=== PATIENT | male | born 1965 | race Caucasian/White ===

== ENCOUNTER → 2018-04-30 | Outpatient (REF) | payer OTHER ==
[2018-05-03 14:44] LABS: CODEINE, URINE Negative (Cutoff=100); CREATININE, URINE 62.4 mg/dL (20.0-300.0); HYDROCODONE CONFIRM, URINE 864 ng/mL (Cutoff=100); HYDROCODONE, URINE Positive (.); HYDROMORPHONE CONFIRM, URINE 227 ng/mL (Cutoff=100); HYDROMORPHONE, URINE Positive (.); MORPHINE, URINE Negative (Cutoff=100); OPIATES, URINE Positive ng/mL (Cutoff=300)
== END | disposition home or self-care (01) ==
LOC: M SFHCPLAZ 17:19
DX: F11.90 Opioid use, unspecified, uncomplicated (principal); M54.5 Low back pain

== ENCOUNTER 2018-08-14 07:42 | Day surgery (SDC) | payer OTHER ==
[~2018-08-14] VITALS: Ht 177.8 cm; Wt 95.9 kg
[2018-08-14] MEDS: NS 1,000 ML IV ONE (06:15)
[~2018-08-14 07:42] MED LIST: CRAN450T4 PO; CYCL10TA PO; GLUCCAP4 PO; HYDR-4514 PO; LIDOCAINE 2% INJ 100 MG/5 ML SDV (FOR ANES.) As Ordered ONE; MELO15TA28 PO; NEUR300C PO; OMEGCAP4 PO; PROBCAP14 PO; PROPOFOL 200 MG/20 ML VIAL As Ordered ONE; ROSU20TA4 PO; SERT-141 PO
[2018-08-14] MEDS ORDERED: PROPOFOL 200 MG/20 ML VIAL As Ordered ONE (08:21)
--- NOTE | 2018-08-14 08:48 | ROOR ---
Patient Name: Magdaleno Rucker Procedure Date: 08/14/2018 8:12 AM Date of : 1965 Age: 53 Room: [facility] Gender: Male Note Status: Finalized Procedure: Colonoscopy Indications: Screening for colorectal malignant neoplasm Providers: Bart NGUYEN MD Referring MD: INDIRA BANDA Jaci [facility] Janet Requesting Provider: Medicines: Monitored Anesthesia Care Complications: No immediate complications. Procedure: Pre-Anesthesia Assessment: - The heart rate, respiratory rate, oxygen saturations, blood pressure, adequacy of pulmonary ventilation, and response to care were monitored throughout the procedure. The Colonoscope was introduced through the anus and advanced to the terminal ileum, with identification of the appendiceal orifice and IC valve. The colonoscopy was performed without difficulty. The patient tolerated the procedure well. The quality of the bowel preparation was good. Findings: The perianal and digital rectal examinations were normal. Three sessile polyps were found in the splenic flexure. The polyps were 3 to 6 mm in size. These polyps were removed with a hot snare. Resection and retrieval were complete. Two sessile polyps were found in the sigmoid colon. The polyps were 3 to 4 mm in size. These polyps were removed with a hot snare. Resection and retrieval were complete. A 4 mm polyp was found in the recto-sigmoid colon. The polyp was sessile. The polyp was removed with a hot snare. Resection and retrieval were complete. Mild sigmoid diverticulosis and small internal hemorrhoids. The exam was otherwise without abnormality on direct and retroflexion views. Impression: - Three 3 to 6 mm polyps at the splenic flexure, removed with a hot snare. Resected and retrieved. - Two 3 to 4 mm polyps in the sigmoid colon, removed with a hot snare. Resected and retrieved. - One 4 mm polyp at the recto-sigmoid colon, removed with a hot snare. Resected and retrieved. - Mild sigmoid diverticulosis and small internal hemorrhoids. - The examination was otherwise normal on direct and retroflexion views. Recommendation: - Repeat colonoscopy in 3 years for surveillance. Bart Nguyen MD Bart NGUYEN MD 08/14/2018 8:47:46 AM Electronically signed by Bart NGUYEN MD Number of Addenda: 0 Note Initiated On: 08/14/2018 8:12 AM Estimated Blood Loss: Estimated blood loss: none.
[2018-08-14 09:05] VITALS: BP 100/65
== END 2018-08-14 09:17 | disposition home or self-care (01) ==
LOC: M OPP 07:42
PROVIDERS: ATTEND Internal Medicine Gastroenterology
DX: D12.3 Benign neoplasm of transverse colon (principal); D12.5 Benign neoplasm of sigmoid colon; D12.7 Benign neoplasm of rectosigmoid junction; K57.30 Diverticulosis of large intestine without perforation or abscess without bleeding; K64.8 Other hemorrhoids; Z12.11 Encounter for screening for malignant neoplasm of colon

== ENCOUNTER → 2018-11-05 | Outpatient (REF) | payer OTHER ==
[~2018-11-05] MED LIST changes: -LIDOCAINE 2% INJ 100 MG/5 ML SDV (FOR ANES.) As Ordered ONE; -PROPOFOL 200 MG/20 ML VIAL As Ordered ONE; -ROSU20TA4 PO; +ROSU20TA5 PO
[2018-11-05 17:54] LABS: BLOOD UREA NITROGEN 8 MG/DL (7-18); CREATININE FOR GFR 0.79 MG/DL (0.70-1.30); GLOMERULAR FILTRATION RATE > 60.0 (>56)
== END ==
LOC: M LABDRAW1 17:09
PROVIDERS: ATTEND Physician Assistant
DX: M47.817 Spondylosis without myelopathy or radiculopathy, lumbosacral region (principal)

== ENCOUNTER 2019-09-29 00:13 | Emergency (ER) | payer OTHER ==
[~2019-09-29] VITALS: Ht 177.8 cm; Wt 90.9 kg
[~2019-09-29 00:13] MED LIST changes: +CYCL-707 PO; -CYCL10TA PO
[2019-09-29] MEDS ORDERED: MORPHINE 4 MG/ML 1ML VIAL/SYRINGE (J2270) IV PRN (00:45)
[2019-09-29] MEDS ORDERED: ONDANSETRON 4MG/2ML VIAL IV ONE (00:45)
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
[2019-09-29] MEDS ORDERED: ATOR1TAB19 PO (01:31)
[2019-09-29 02:31] VITALS: BP 129/69
== END 2019-09-29 02:33 | disposition home or self-care (01) ==
LOC: EDBD 00:13 → M ED 00:13
DX: Z04.71 Encounter for examination and observation following alleged adult physical abuse (principal); S01.01XA Laceration without foreign body of scalp, initial encounter; S01.512A Laceration without foreign body of oral cavity, initial encounter; Y04.0XXA Assault by unarmed brawl or fight, initial encounter; Y92.480 Sidewalk as the place of occurrence of the external cause; Y93.9 Activity, unspecified; Y99.9 Unspecified external cause status; F17.200 Nicotine dependence, unspecified, uncomplicated; Z79.891 Long term (current) use of opiate analgesic; Z79.899 Other long term (current) drug therapy

== ENCOUNTER → 2020-08-26 | Outpatient (CLI) | payer OTHER ==
[~2020-08-26] MED LIST changes: +ATOR1TAB19 PO
[2020-08-26 17:51] LABS: ALT/SGPT 48 U/L (12-78); BILIRUBIN,TOTAL 0.2 MG/DL (0.2-1.0); BLOOD UREA NITROGEN 7 MG/DL (7-18); CALCIUM LEVEL 8.6 MG/DL (8.5-10.1); CARBON DIOXIDE LEVEL 25 MEQ/L (21-32); CHLORIDE LEVEL 102 MEQ/L (98-107); CHOLESTEROL LEVEL 172 MG/DL (<200); CREATININE FOR GFR 0.71 MG/DL (0.70-1.30); GLOMERULAR FILTRATION RATE > 60.0 (>56); GLUCOSE, FASTING 103 MG/DL (70-100); HDL CHOLESTEROL 40 MG/DL (>40); NON-HDL-C 132 MG/DL; POTASSIUM SERUM 4.2 MEQ/L (3.5-5.1); SODIUM LEVEL 136 MEQ/L (136-145); TRIGLYCERIDES LEVEL 626 MG/DL (<150)
== END ==
LOC: M LAB 16:25
PROVIDERS: ATTEND Family Medicine
DX: Z00.00 Encounter for general adult medical examination without abnormal findings (principal)

== ENCOUNTER → 2020-12-15 | Outpatient (CLI) | payer OTHER ==
[2020-12-15 17:13] LABS: ALBUMIN 4.1 GM/DL (3.2-5.2); ALT/SGPT 34 U/L (12-78); BILIRUBIN,TOTAL 0.2 MG/DL (0.2-1.0); BLOOD UREA NITROGEN 7 MG/DL (7-18); CALCIUM LEVEL 8.9 MG/DL (8.5-10.1); CARBON DIOXIDE LEVEL 27 MEQ/L (21-32); CHLORIDE LEVEL 100 MEQ/L (98-107); CHOLESTEROL LEVEL 168 MG/DL (<200); CHOLESTEROL RISK RATIO 4.421 (<5); CREATININE FOR GFR 1.07 MG/DL (0.70-1.30); GLOMERULAR FILTRATION RATE > 60.0 (>56); GLUCOSE, FASTING 126 MG/DL (70-100); HDL CHOLESTEROL 38 MG/DL (>40); LDL CHOLESTEROL 81 MG/DL (<100); NON-HDL-C 130 MG/DL; POTASSIUM SERUM 4.2 MEQ/L (3.5-5.1); SODIUM LEVEL 133 MEQ/L (136-145); TOTAL PROTEIN 7.1 GM/DL (6.4-8.2); TRIGLYCERIDES LEVEL 247 MG/DL (<150)
== END ==
LOC: M LAB 15:42
PROVIDERS: ATTEND Nurse Practitioner Family
DX: E78.2 Mixed hyperlipidemia (principal); N40.1 Benign prostatic hyperplasia with lower urinary tract symptoms